=== PATIENT | female | born 1945 | race Caucasian/White ===

== ENCOUNTER → 2017-03-13 | Outpatient (CLI) | payer OTHER ==
[~2017-03-13] MED LIST: ASPIR 8181 MG PO; CARAFATE 1 GM TA1 G1 PO; CELEXA20 MG PO; DULERA 200 MCG/13 GM; EPIPEN 2-P0.3 MG/0.3 IM; KLOR-CON 1010 MEQ PO; LASIX 40 MG TAB40 M2 PO; MIRAPEX 0.250.25 M1 PO; NAPROSYN500 MG PO; OMEPRAZOLE 20 M20 M1 PO; PRAVACHOL40 MG PO; PROAIR HFA8.5 GM INH; SINGULAIR 10 MG10 M1 PO; SPIRIVA INH; TOPROL XL25 MG PO
== END ==
LOC: CAT 10:24
DX: J18.9 Pneumonia, unspecified organism (principal); R91.8 Other nonspecific abnormal finding of lung field; Z86.718 Personal history of other venous thrombosis and embolism